=== PATIENT | female | born 1955 | race African-American/Black ===

== ENCOUNTER 2019-05-07 06:27 | Day surgery (SDC) | payer MEDICARE, OTHER ==
[~2019-05-07] VITALS: Ht 152.4 cm; Wt 66.4 kg
[~2019-05-07 06:27] MED LIST: ALBU8HFA IH; BUDE1AMP IH; IBUP-2070 PO; LEVO500 PO; MONT10TA21 PO; PANT40TA25 PO; PRED10 PO; SODIUM CHLORIDE 0.9% 1,000 ML IV ONE
[2019-05-07] MEDS ORDERED: LIDOCAINE 2% 5 ML JELLY TP ONE (06:28)
[2019-05-07] MEDS ORDERED: LIDOCAINE 4% 50 ML SOLUTION TP ONE (06:28)
[2019-05-07] MEDS ORDERED: ALBUTEROL SULFATE 2.5 MG/0.5 ML NEB SOLUTION NEB ONE (06:28)
[2019-05-07] MEDS ORDERED: BENZOCAINE 20% 50 MCG/SPRAY 57 GM TP ONE (06:28)
[2019-05-07] MEDS ORDERED: SODIUM CHLORIDE 0.9% 1,000 ML IV ONE (06:30)
[2019-05-07] MEDS ORDERED: BUDE10.2 IH (07:06)
[2019-05-07] MEDS ORDERED: MONT10TA21 PO (07:06)
[2019-05-07] MEDS ORDERED: FLUT16H NASAL (07:06)
[2019-05-07] MEDS ORDERED: DONE5TAB5 PO (07:06)
[2019-05-07] MEDS ORDERED: BUDE180H IH (07:06)
[2019-05-07] MEDS ORDERED: MEMA5 PO (07:06)
[2019-05-07] MEDS ORDERED: IPRNEB IH (07:06)
[2019-05-07] MEDS ORDERED: FentaNYL CITRATE-PF 100 MCG/2 ML VIAL ONE (08:03)
[2019-05-07] MEDS ORDERED: MIDAZOLAM HCL 2 MG/2 ML VIAL ONE (08:03)
[2019-05-07] MEDS ORDERED: MethylPREDNISolone SOD SUCC 125 MG/2 ML VIAL ONE (08:58)
[2019-05-07] MEDS ORDERED: MethylPREDNISolone SOD SUCC 125 MG/2 ML VIAL IVP ONE (09:00)
[2019-05-07] MEDS ORDERED: OXYGEN THERAPY IH SCH (20:00)
== END 2019-05-07 10:20 | disposition home or self-care (01) ==
LOC: SURGERY 06:27
PROVIDERS: ATTEND Internal Medicine Critical Care Medicine
DX: R05 Cough (principal); R91.1 Solitary pulmonary nodule; J34.89 Other specified disorders of nose and nasal sinuses; J38.4 Edema of larynx; B37.0 Candidal stomatitis; J98.8 Other specified respiratory disorders; J18.1 Lobar pneumonia, unspecified organism
CPT/HCPCS: 31623; 31624; 71045; 87015; 87070; 87077; 87101; 87186; 87205; 87206; 87220; 88108; 88312; J2250; J2930; J3010; J7030

== ENCOUNTER 2022-04-17 23:28 | Emergency (ER) | payer MEDICARE, OTHER ==
[~2022-04-17] VITALS: Ht 157.5 cm; Wt 63.6 kg
[~2022-04-17 23:28] MED LIST changes: -ALBU8HFA IH; +BUDE10.2 IH; +BUDE180H IH; -BUDE1AMP IH; +DONE-52 PO; +FLUT16H NASAL; -IBUP-2070 PO; +IPRNEB IH; -LEVO500 PO; +MEMA5 PO; +MONT-35 PO; -MONT10TA21 PO; -PANT40TA25 PO; -PRED10 PO; -SODIUM CHLORIDE 0.9% 1,000 ML IV ONE
[2022-04-18 04:21] LABS: BASOPHILS % (AUTO) 0.3 % (0.0-2.0); EOSINOPHILS % (AUTO) 0.3 % (1.0-6.0); HEMATOCRIT 35.4 % (36-46); HEMOGLOBIN 11.8 g/dL (12.0-16.0); LYMPHOCYTES # (AUTO) 1.5 K/uL (1.0-4.8); LYMPHOCYTES % (AUTO) 37.4 % (22.0-44.0); MEAN CORPUSCULAR HEMOGLOBIN 30.1 pg (26.0-34.0); MEAN CORPUSCULAR HGB CONC 33.3 G/dL (31.0-37.0); MEAN CORPUSCULAR VOLUME 91 fL (80-100); MONOCYTES # (AUTO) 0.7 K/uL (0.1-1.0); MONOCYTES % (AUTO) 17.8 % (2.0-9.0); NEUTROPHILS # (AUTO) 1.7 K/uL (1.8-7.7); NEUTROPHILS % (AUTO) 44.2 % (40.0-70.0); PLATELET COUNT (AUTO) 140 K/uL (150-450); RED BLOOD CELL COUNT(AUTO) 3.91 MIL/uL (4.00-5.20); RED CELL DISTRIBUTION WIDTH 15.2 % (11.5-14.5)
[2022-04-18 04:29] LABS: ANION GAP 7 mmol/L (8-16); CALCIUM, TOTAL 8.4 mg/dL (8.8-10.5); CARBON DIOXIDE 27 mmol/L (22-29); CHLORIDE 107 mmol/L (98-107); CREATININE 1.08 mg/dL (0.60-1.30); GLUCOSE,RANDOM 99 mg/dL (70-110); SODIUM SERUM 141 mmol/L (136-145); UREA NITROGEN, BLOOD 22 mg/dL (7-18)
[2022-04-18 04:31] LABS: GLOMERULAR FILTR. RATE CALC > 60 mL/min (>60)
[2022-04-18 04:35] LABS: ALANINE AMINOTRANSFERASE 56 U/L (12-78); ALBUMIN 2.7 g/dL (3.4-5.0); ALKALINE PHOSPHATASE 62 U/L (46-116); ASPARTATE AMINOTRANSFERASE 46 U/L (15-37); BILIRUBIN,TOTAL 0.3 mg/dL (0.1-1.0); TOTAL PROTEIN, SERUM 7.2 g/dL (6.4-8.2)
[2022-04-18 05:23] LABS: APPEARANCE,URINE CLEAR (CLEAR); BILIRUBIN,URINE NEGATIVE (NEGATIVE); GLUCOSE, URINE (UA) NEGATIVE (NEGATIVE); KETONES,URINE NEGATIVE (NEGATIVE); LEUKOCYTE ESTERASE ,URINE LARGE (NEGATIVE); NITRATE,URINE NEGATIVE (NEGATIVE); OCCULT BLOOD,URINE NEGATIVE (NEGATIVE); PROTEIN,URINE TRACE mg/dL (NEGATIVE); SPECIFIC GRAVITIY, URINE 1.034 (1.003-1.030); UROBILINOGEN,URINE <=1.0 mg/dL (<=1.0)
[2022-04-18 05:39] LABS: BACTERIA,URINE None Seen /HPF (None Seen); RBC,URINE None Seen /HPF (0-2)
[2022-04-18] MEDS ORDERED: CEPH-558 PO (06:36)
[2022-04-18] MEDS ORDERED: ALBU8.5H8 IH (06:37)
[2022-04-18 06:45] VITALS: BP 122/65
[2022-04-18] MEDS ORDERED: CEPHALEXIN MONOHYDRATE 500 MG CAPSULE PO ONE (06:45)
== END 2022-04-18 07:09 | disposition home or self-care (01) ==
LOC: EMS 23:28
DX: R42 Dizziness and giddiness (principal); S00.93XA Contusion of unspecified part of head, initial encounter; N39.0 Urinary tract infection, site not specified; J45.909 Unspecified asthma, uncomplicated; W19.XXXA Unspecified fall, initial encounter; Y93.89 Activity, other specified; Y92.89 Other specified places as the place of occurrence of the external cause; Y99.8 Other external cause status
CPT/HCPCS: 70450; 80053; 81001; 84484; 85025; 87086; 93005; 99285

== ENCOUNTER 2024-02-04 06:33 | Day surgery (SDC) | payer MEDICARE, OTHER ==
[~2024-02-04] VITALS: Ht 151.1 cm; Wt 65.5 kg
[~2024-02-04 06:33] MED LIST changes: +ALBU18HF12 IH; +ASCO500T20 PO; +BICT1TAB PO; -BUDE10.2 IH; -BUDE180H IH; +CETI10TA58 PO; +CHOL200074 PO; +DICL100G60 TP; +FAMO40TA7 PO; -FLUT16H NASAL; +GABA-529 PO; +IBAN150T21 PO; -IPRNEB IH; -MEMA5 PO; +MEMA5TAB41 PO; +MOME13HF11 IH
[2024-02-04] MEDS ORDERED: MIDAZOLAM HCL 2 MG/2 ML VIAL ONE (07:39)
[2024-02-04] MEDS ORDERED: FentaNYL CITRATE PF 100 MCG/2 ML VIAL ONE (07:39)
[2024-02-04] MEDS: SODIUM CHLORIDE 0.9% 1,000 ML IV ONE (08:00)
[2024-02-04 09:10] VITALS: PULSE 65; RESP 18; O2SAT 96
[2024-02-04] MEDS ORDERED: MethylPREDNISolone SOD SUCC 125 MG/2 ML VIAL ONE (09:50)
[2024-02-04] MEDS: MethylPREDNISolone SOD SUCC 125 MG/2 ML VIAL IVP ONE (09:54)
[2024-02-04] MEDS ORDERED: LIDOCAINE 4% 50 ML SOLUTION ONE (12:00)
[2024-02-04] MEDS ORDERED: ALBUTEROL SULFATE 2.5 MG/0.5 ML NEB SOLUTION NEB ONE (12:00)
[2024-02-04] MEDS ORDERED: LIDOCAINE 2% 11 ML JELLY ONE (12:00)
[2024-02-04] MEDS ORDERED: BENZOCAINE 20% 50 MCG/SPRAY 57 GM ONE (12:00)
== END 2024-02-04 12:30 | disposition home or self-care (01) ==
LOC: SURGERY 06:33
PROVIDERS: ATTEND Internal Medicine Critical Care Medicine
DX: R05.9 Cough, unspecified (principal); R06.2 Wheezing; I51.9 Heart disease, unspecified; R91.8 Other nonspecific abnormal finding of lung field; J98.09 Other diseases of bronchus, not elsewhere classified; J84.10 Pulmonary fibrosis, unspecified; J98.8 Other specified respiratory disorders; R73.03 Prediabetes; Z85.21 Personal history of malignant neoplasm of larynx
CPT/HCPCS: 87206; 87101; 87220; 87070; 31623; 31624; 71045; 87015; J3010; J2250; J2919; Q9967; 88108; J7613; Z7610